=== PATIENT | male | born 1955 ===

== ENCOUNTER 2019-04-09 14:08 | Inpatient (IN) ==
[2019-04-09] MEDS ORDERED: SODIUM CHLORIDE 0.9% 1,000 ML IV STA (15:24)
[2019-04-09] MEDS ORDERED: AZITHROMYCIN 250 MG TABLET PO STA (16:19)
[2019-04-09] MEDS ORDERED: cefTRIAXone 1,000 MG in SODIUM CHLORIDE 0.9% 100 ML IV STA (16:19)
[2019-04-09 16:23] LABS: Albumin 3.4 G/DL (3.4-5.0); Bilirubin,Total 1.2 MG/DL (0.2-1.0); Calcium 8.2 MG/DL (8.5-10.1); Osmolality,Calculated 286.1 MOS/KG (273-304); Total Protein 6.8 G/DL (6.4-8.3)
[2019-04-09] MEDS ORDERED: SODIUM CHLORIDE 0.9% 2,400 ML IV ONE ×2 (17:23→19:02)
[2019-04-09 17:28] LABS: Basophils % 0.2 % (0.0-0.8); Hematocrit 40.1 VOL% (42.0-52.0); Hemoglobin 13.7 GM/DL (14.0-18.0); Immature Granulocytes % 0.3 %; Immature Granulocytes Absolute 0.03 #; Lymphocytes # 0.5 10*3/uL (1.4-4.0); Lymphocytes % 5.2 % (21.2-54.2); Mean Corpuscular HGB Conc 34.2 GM/DL (32-36); Mean Corpuscular Volume 97.1 FL (87-102); Mean Platelet Volume 9.4 FL (9.6-12.0); Monocytes % 7.5 % (1.7-12.7); Neutrophils % 86.8 % (38.7-73.9); Platelet Count 178 T/CUMM (130-400); Red Blood Count 4.13 MC/CUMM (3.8-5.5); Red Cell Distribution Width 14.2 % (9.3-17.3); White Blood Count 9.7 T/CUMM (4-12)
[2019-04-09 17:59] LABS: Apearance,Urine CLEAR (Clear); Blood, Urine Negative (Negative); Glucose,Urine (UA) Negative (Negative); Hyaline Casts,Urine 48 /LPF (0-3); Ketones,Urine Negative (Negative); Mucus,Urine Few /LPF (Occasional); Nitrite,Urine Negative (Negative); Protein,Urine 30 MG/DL; RBC,Urine 3 /HPF (0-4); Squamous Epithelial Cell,Urine Occasional /HPF (0-10); Urine Color Amber (Yellow); Urine Specific Gravity 1.026 (1.001-1.035); WBC,Urine 2 /HPF (0-6)
[2019-04-09 18:04] LABS: Bilirubin,Urine Small mg/dL (Negative)
[2019-04-09 18:30] LABS: Band Neutrophils 28 % (0-10); Lymphocytes 6 % (20-55); Metamyelocytes 8 %; Segmented Neutrophils 53 % (50-85); Total Cells Counted 100
[2019-04-09 18:31] LABS: Platelet Estimate Normal
[2019-04-09] MEDS ORDERED: MAGNESIUM SULF RIDER 2 GM in PREMIX 1 EACH IV ONE (19:13)
[2019-04-09] MEDS ORDERED: MORPHINE 4 MG/1 ML VIAL IV PRN (19:20)
[2019-04-09] MEDS ORDERED: ONDANSETRON 4 MG/2 ML VIAL IV PRN (19:23)
[2019-04-09] MEDS ORDERED: ACETAMINOPHEN 325 MG TABLET PO PRN (19:23)
[2019-04-09] MEDS ORDERED: NICOTINE 21 MG/24 HR PATCH TRANSDERM PRN (19:26)
[2019-04-09] MEDS: MEROPENEM 500 MG in SODIUM CHLORIDE 0.9% 100 ML IV SCH (20:30)
[2019-04-09] MEDS: SODIUM CHLORIDE 0.9% 1,000 ML IV SCH (20:30)
[2019-04-09] MEDS ORDERED: ENOXAPARIN 30 MG/0.3 ML SYRINGE SUBCUT SCH (21:00)
[2019-04-09 21:19] LABS: CKMB % 3.1 %; Troponin I < 0.015 NG/ML (0.00-0.045)
[2019-04-09 21:25] LABS: Free T4 (Free Thyroxine) 0.85 NG/DL (0.76-1.46)
[2019-04-09] MEDS: GABAPENTIN 300 MG CAPSULE PO SCH (21:30)
[2019-04-09] MEDS: buPROPion SR 150 MG TABLET PO SCH (21:30)
[2019-04-09] MEDS ORDERED: VANCOMYCIN INJ 1,250 MG in SODIUM CHLORIDE 0.9% 250 ML IV SCH (22:00)
[2019-04-09] MEDS: propylthiouraciL 50 MG TABLET PO SCH (22:11)
[2019-04-09 23:34] LABS: Apearance,Urine CLEAR (Clear); Bilirubin,Urine Negative (Negative); Blood, Urine Negative (Negative); Glucose,Urine (UA) Negative (Negative); Hyaline Casts,Urine 1 /LPF (0-3); Ketones,Urine Negative (Negative); Mucus,Urine Occasional /LPF (Occasional); Nitrite,Urine Negative (Negative); Protein,Urine Negative; RBC,Urine 1 /HPF (0-4); Urine Color Yellow (Yellow); Urine Specific Gravity 1.009 (1.001-1.035); WBC,Urine <1 /HPF (0-6)
[2019-04-10] MEDS: ALBUTEROL/IPRATROPIUM 3 ML NEB RESP TX SCH ×4 (03:26→19:31)
[2019-04-10] MEDS: SODIUM CHLORIDE 0.9% 1,000 ML IV SCH ×3 (04:15→20:54)
[2019-04-10] MEDS: MEROPENEM 500 MG in SODIUM CHLORIDE 0.9% 100 ML IV SCH (05:00)
[2019-04-10 05:04] LABS: Basophils # 0.1 10*3/uL (0.0-0.2); Basophils % 0.5 % (0.0-0.8); Hematocrit 37.1 VOL% (42.0-52.0); Hemoglobin 12.5 GM/DL (14.0-18.0); Immature Granulocytes % 0.3 %; Immature Granulocytes Absolute 0.03 #; Lymphocytes # 0.8 10*3/uL (1.4-4.0); Lymphocytes % 8.3 % (21.2-54.2); Mean Corpuscular HGB Conc 33.7 GM/DL (32-36); Mean Corpuscular Volume 98.7 FL (87-102); Mean Platelet Volume 9.8 FL (9.6-12.0); Monocytes % 5.8 % (1.7-12.7); Neutrophils % 85.1 % (38.7-73.9); Platelet Count 165 T/CUMM (130-400); Red Blood Count 3.76 MC/CUMM (3.8-5.5); Red Cell Distribution Width 14.4 % (9.3-17.3); White Blood Count 9.2 T/CUMM (4-12)
[2019-04-10 05:23] LABS: Calcium 7.6 MG/DL (8.5-10.1); Osmolality,Calculated 293.7 MOS/KG (273-304)
[2019-04-10 05:25] LABS: CKMB % 3.4 %; Troponin I < 0.015 NG/ML (0.00-0.045)
[2019-04-10 05:35] LABS: Band Neutrophils 18 % (0-10); Hypochromasia Slight; Lymphocytes 4 % (20-55); Platelet Estimate Adequate; Risk Ratio 2.41; Segmented Neutrophils 71 % (50-85); Total Cells Counted 100
[2019-04-10] MEDS: AZITHROMYCIN 250 MG TABLET PO SCH (10:16)
[2019-04-10] MEDS: CLOPIDOGREL 75 MG TABLET PO SCH (10:17)
[2019-04-10] MEDS: ASPIRIN EC 325 MG TABLET PO SCH (10:17)
[2019-04-10] MEDS: ATORVASTATIN 20 MG TABLET PO SCH (10:17)
[2019-04-10] MEDS: buPROPion SR 150 MG TABLET PO SCH ×2 (10:17→20:54)
[2019-04-10] MEDS: GABAPENTIN 300 MG CAPSULE PO SCH ×2 (10:17→20:54)
[2019-04-10] MEDS: PANTOPRAZOLE 40 MG VIAL IV SCH (10:18)
[2019-04-10] MEDS: cefTRIAXone 1,000 MG in SYRINGE 1 EACH IV SCH (10:18)
[2019-04-10] MEDS ORDERED: MEROPENEM 500 MG in SODIUM CHLORIDE 0.9% 100 ML IV SCH (11:00)
[2019-04-10] MEDS: VANCOMYCIN INJ 1,250 MG in SODIUM CHLORIDE 0.9% 250 ML IV SCH (11:30)
[2019-04-10] MEDS: propylthiouraciL 50 MG TABLET PO SCH ×3 (12:28→20:55)
[2019-04-10] MEDS: ENOXAPARIN 40 MG/0.4 ML SYRINGE SUBCUT SCH (20:54)
[2019-04-10] MEDS ORDERED: ZALEPLON 5 MG CAPSULE PO PRN (23:53)
[2019-04-11] MEDS: ALBUTEROL/IPRATROPIUM 3 ML NEB RESP TX SCH ×4 (00:08→20:00)
[2019-04-11] MEDS: VANCOMYCIN INJ 1,250 MG in SODIUM CHLORIDE 0.9% 250 ML IV SCH ×3 (00:28→22:28)
[2019-04-11] MEDS: SODIUM CHLORIDE 0.9% 1,000 ML IV SCH ×3 (02:33→21:06)
[2019-04-11 05:17] LABS: Basophils % 0.3 % (0.0-0.8); Eosinophils % 0.3 % (0.00-10.9); Hematocrit 32.2 VOL% (42.0-52.0); Immature Granulocytes % 1.1 %; Immature Granulocytes Absolute 0.09 #; Lymphocytes # 0.6 10*3/uL (1.4-4.0); Lymphocytes % 7.9 % (21.2-54.2); Mean Corpuscular HGB Conc 34.2 GM/DL (32-36); Mean Corpuscular Volume 98.5 FL (87-102); Mean Platelet Volume 8.7 FL (9.6-12.0); Monocytes % 4.4 % (1.7-12.7); Platelet Count 178 T/CUMM (130-400); Red Blood Count 3.27 MC/CUMM (3.8-5.5); Red Cell Distribution Width 13.9 % (9.3-17.3)
[2019-04-11 05:44] LABS: Calcium 7.9 MG/DL (8.5-10.1)
[2019-04-11 05:59] LABS: Lymphocytes 4 % (20-55); Platelet Estimate Decreased; Segmented Neutrophils 94 % (50-85); Total Cells Counted 100
[2019-04-11 06:00] LABS: Polychromasia Few
[2019-04-11] MEDS: CLOPIDOGREL 75 MG TABLET PO SCH (09:54)
[2019-04-11] MEDS: ATORVASTATIN 20 MG TABLET PO SCH (09:54)
[2019-04-11] MEDS: GABAPENTIN 300 MG CAPSULE PO SCH ×2 (09:54→21:05)
[2019-04-11] MEDS: ASPIRIN EC 325 MG TABLET PO SCH (09:54)
[2019-04-11] MEDS: cefTRIAXone 1,000 MG in SYRINGE 1 EACH IV SCH (09:55)
[2019-04-11] MEDS: buPROPion SR 150 MG TABLET PO SCH ×2 (09:55→21:05)
[2019-04-11] MEDS: PANTOPRAZOLE 40 MG VIAL IV SCH (09:55)
[2019-04-11] MEDS: AZITHROMYCIN 250 MG TABLET PO SCH (09:56)
[2019-04-11] MEDS: propylthiouraciL 50 MG TABLET PO SCH ×3 (10:08→21:07)
[2019-04-11] MEDS: ENOXAPARIN 40 MG/0.4 ML SYRINGE SUBCUT SCH (21:05)
[2019-04-11] MEDS: TEMAZEPAM 15 MG CAPSULE PO PRN (22:28)
[2019-04-12] MEDS: ALBUTEROL/IPRATROPIUM 3 ML NEB RESP TX SCH ×4 (01:12→20:00)
[2019-04-12 05:22] LABS: Basophils % 0.3 % (0.0-0.8); Eosinophils # 0.1 10*3/uL (0.0-0.87); Eosinophils % 0.8 % (0.00-10.9); Hematocrit 32.4 VOL% (42.0-52.0); Hemoglobin 11.1 GM/DL (14.0-18.0); Immature Granulocytes % 0.5 %; Immature Granulocytes Absolute 0.03 #; Lymphocytes # 0.8 10*3/uL (1.4-4.0); Lymphocytes % 13.4 % (21.2-54.2); Mean Corpuscular HGB Conc 34.3 GM/DL (32-36); Mean Platelet Volume 9.8 FL (9.6-12.0); Monocytes % 4.3 % (1.7-12.7); Neutrophils % 80.7 % (38.7-73.9); Platelet Count 161 T/CUMM (130-400); Red Blood Count 3.34 MC/CUMM (3.8-5.5); Red Cell Distribution Width 13.7 % (9.3-17.3); White Blood Count 6.3 T/CUMM (4-12)
[2019-04-12 05:47] LABS: Calcium 7.7 MG/DL (8.5-10.1); Osmolality,Calculated 282.8 MOS/KG (273-304)
[2019-04-12] MEDS ORDERED: POTASSIUM CHLORIDE 20 MEQ TABLET PO ONE (08:44)
[2019-04-12] MEDS: PANTOPRAZOLE 40 MG VIAL IV SCH (09:29)
[2019-04-12] MEDS: ATORVASTATIN 20 MG TABLET PO SCH (09:29)
[2019-04-12] MEDS: GABAPENTIN 300 MG CAPSULE PO SCH ×2 (09:29→21:49)
[2019-04-12] MEDS: ASPIRIN EC 325 MG TABLET PO SCH (09:29)
[2019-04-12] MEDS: CLOPIDOGREL 75 MG TABLET PO SCH (09:29)
[2019-04-12] MEDS: buPROPion SR 150 MG TABLET PO SCH ×2 (09:30→21:48)
[2019-04-12] MEDS: AZITHROMYCIN 250 MG TABLET PO SCH (09:30)
[2019-04-12] MEDS: cefTRIAXone 1,000 MG in SYRINGE 1 EACH IV SCH (09:30)
[2019-04-12] MEDS: propylthiouraciL 50 MG TABLET PO SCH ×3 (09:34→21:49)
[2019-04-12] MEDS: SODIUM CHLORIDE 0.9% 1,000 ML IV SCH (13:18)
[2019-04-12] MEDS: VANCOMYCIN INJ 1,250 MG in SODIUM CHLORIDE 0.9% 250 ML IV SCH ×2 (13:18→22:40)
[2019-04-12] MEDS: TEMAZEPAM 15 MG CAPSULE PO PRN (21:49)
[2019-04-12] MEDS: ENOXAPARIN 40 MG/0.4 ML SYRINGE SUBCUT SCH (21:50)
[2019-04-13] MEDS: ALBUTEROL/IPRATROPIUM 3 ML NEB RESP TX SCH ×4 (00:35→20:38)
[2019-04-13] MEDS: ASPIRIN EC 325 MG TABLET PO SCH (10:07)
[2019-04-13] MEDS: propylthiouraciL 50 MG TABLET PO SCH ×3 (10:07→21:55)
[2019-04-13] MEDS: CLOPIDOGREL 75 MG TABLET PO SCH (10:07)
[2019-04-13] MEDS: buPROPion SR 150 MG TABLET PO SCH ×2 (10:07→21:45)
[2019-04-13] MEDS: ATORVASTATIN 20 MG TABLET PO SCH (10:08)
[2019-04-13] MEDS: cefTRIAXone 1,000 MG in SYRINGE 1 EACH IV SCH (10:08)
[2019-04-13] MEDS: GABAPENTIN 300 MG CAPSULE PO SCH ×2 (10:08→21:50)
[2019-04-13] MEDS: PANTOPRAZOLE 40 MG VIAL IV SCH (10:11)
[2019-04-13] MEDS: AZITHROMYCIN 250 MG TABLET PO SCH (11:58)
[2019-04-13] MEDS: VANCOMYCIN INJ 1,250 MG in SODIUM CHLORIDE 0.9% 250 ML IV SCH (11:58)
[2019-04-13] MEDS ORDERED: FUROSEMIDE 40 MG/4 ML VIAL IV ONE (12:39)
[2019-04-13] MEDS ORDERED: POTASSIUM CHLORIDE 20 MEQ TABLET PO ONE (12:44)
[2019-04-13] MEDS: SULFAMETHOX/TRIMETHOPRIM 400-80 MG TABLET PO SCH ×2 (13:19→21:46)
[2019-04-13] MEDS: AMOXICILLIN 500 MG CAPSULE PO SCH ×2 (14:37→21:45)
[2019-04-13] MEDS: FUROSEMIDE 40 MG/4 ML VIAL IV SCH (15:48)
[2019-04-13] MEDS: ENOXAPARIN 40 MG/0.4 ML SYRINGE SUBCUT SCH (21:51)
[2019-04-14] MEDS: ALBUTEROL/IPRATROPIUM 3 ML NEB RESP TX SCH ×2 (00:58→08:23)
[2019-04-14 05:08] LABS: Basophils % 0.4 % (0.0-0.8); Eosinophils # 0.1 10*3/uL (0.0-0.87); Eosinophils % 2.9 % (0.00-10.9); Hematocrit 33.8 VOL% (42.0-52.0); Hemoglobin 11.8 GM/DL (14.0-18.0); Immature Granulocytes % 1.3 %; Immature Granulocytes Absolute 0.06 #; Lymphocytes # 1.2 10*3/uL (1.4-4.0); Lymphocytes % 25.5 % (21.2-54.2); Mean Corpuscular HGB Conc 34.9 GM/DL (32-36); Mean Corpuscular Volume 94.2 FL (87-102); Mean Platelet Volume 9.6 FL (9.6-12.0); Monocytes % 14.1 % (1.7-12.7); Neutrophils % 55.8 % (38.7-73.9); Platelet Count 198 T/CUMM (130-400); Red Blood Count 3.59 MC/CUMM (3.8-5.5); Red Cell Distribution Width 13.4 % (9.3-17.3); White Blood Count 4.6 T/CUMM (4-12)
[2019-04-14 05:29] LABS: Osmolality,Calculated 281.1 MOS/KG (273-304)
[2019-04-14] MEDS: AMOXICILLIN 500 MG CAPSULE PO SCH (07:10)
[2019-04-14] MEDS: ASPIRIN EC 325 MG TABLET PO SCH (09:48)
[2019-04-14] MEDS: CLOPIDOGREL 75 MG TABLET PO SCH (09:48)
[2019-04-14] MEDS: SULFAMETHOX/TRIMETHOPRIM 400-80 MG TABLET PO SCH (09:48)
[2019-04-14] MEDS: buPROPion SR 150 MG TABLET PO SCH (09:48)
[2019-04-14] MEDS: propylthiouraciL 50 MG TABLET PO SCH (09:48)
[2019-04-14] MEDS: GABAPENTIN 300 MG CAPSULE PO SCH (09:48)
[2019-04-14] MEDS: FUROSEMIDE 40 MG/4 ML VIAL IV SCH (09:48)
[2019-04-14] MEDS: PANTOPRAZOLE 40 MG VIAL IV SCH (09:49)
[2019-04-14] MEDS: ATORVASTATIN 20 MG TABLET PO SCH (09:53)
[2019-04-14] MEDS ORDERED: POTASSIUM CHLORIDE 20 MEQ TABLET PO ONE (09:59)
[2019-04-14 10:47] VITALS: BP 139/83
== END 2019-04-14 14:34 | disposition home or self-care (01) | DRG 871 ==
LOC: N.ED 14:08 → N.EDINP 19:01 → SUATTDRO 19:01 → N.ICU 19:24 → N.5E 04-10 18:01
PROVIDERS: ADMIT Internal Medicine; ATTEND Internal Medicine

== ENCOUNTER 2020-01-06 13:34 | Inpatient (IN) ==
[2020-01-06 14:15] LABS: Basophils % 0.4 % (0.0-0.8); Eosinophils # 0.1 10*3/uL (0.0-0.87); Eosinophils % 1.6 % (0.00-10.9); Hematocrit 42.2 VOL% (42.0-52.0); Hemoglobin 14.3 GM/DL (14.0-18.0); Immature Granulocytes Absolute 0.05 #; Lymphocytes # 0.6 10*3/uL (1.4-4.0); Lymphocytes % 10.7 % (21.2-54.2); Mean Corpuscular HGB Conc 33.9 GM/DL (32-36); Mean Corpuscular Volume 95.5 FL (87-102); Mean Platelet Volume 9.5 FL (9.6-12.0); Monocytes % 6.4 % (1.7-12.7); Neutrophils % 79.9 % (38.7-73.9); Platelet Count 204 T/CUMM (130-400); Red Blood Count 4.42 MC/CUMM (3.8-5.5); Red Cell Distribution Width 14.2 % (9.3-17.3); White Blood Count 5.1 T/CUMM (4-12)
[2020-01-06 14:38] LABS: Bilirubin,Total 0.9 MG/DL (0.2-1.0); Calcium 8.8 MG/DL (8.5-10.1); Osmolality,Calculated 280.3 MOS/KG (273-304); Total Protein 7.7 G/DL (6.4-8.3)
[2020-01-06] MEDS ORDERED: cefTRIAXone 1,000 MG in SODIUM CHLORIDE 0.9% 100 ML IV STA (15:17)
[2020-01-06] MEDS ORDERED: SODIUM CHLORIDE 0.9% 1,000 ML IV STA (15:17)
[2020-01-06 17:08] LABS: Ferritin 55.2 ng/ml (26-388)
[2020-01-06] MEDS ORDERED: NICOTINE 21 MG/24 HR PATCH TRANSDERM PRN (17:09)
[2020-01-06] MEDS ORDERED: ONDANSETRON 4 MG/2 ML VIAL IV PRN (17:09)
[2020-01-06] MEDS ORDERED: ACETAMINOPHEN 325 MG TABLET PO PRN (17:09)
[2020-01-06] MEDS ORDERED: GLUCAGON 1 MG VIAL IM PRN (17:09)
[2020-01-06] MEDS ORDERED: DEXTROSE 50% 25 GM/50 ML VIAL IV PRN (17:09)
[2020-01-06] MEDS ORDERED: DOCUSATE SODIUM 100 MG CAPSULE PO PRN (17:09)
[2020-01-06] MEDS ORDERED: DEXAMETHASONE 4 MG/1 ML VIAL IV SCH (17:30)
[2020-01-06] MEDS: ENOXAPARIN 40 MG/0.4 ML SYRINGE SUBCUT SCH (19:20)
[2020-01-06] MEDS: DEXAMETHASONE 4 MG/1 ML VIAL IV SCH (19:20)
[2020-01-06 19:58] LABS: ABG Base Excess -1.1 MMOL/L (-2.5-2.5); ABG HCO3 21.7 MMOL/L (20-26); ABG Oxygen Saturation 93.7 % (95-100); ABG PCO2 31.1 MM HG (35-48); ABG PH 7.462 (7.35-7.45); ABG PO2 71.7 MM HG (80-95); ABG TCO2 22.7 MMOL/L (23-27)
[2020-01-06] MEDS: ASCORBIC ACID 500 MG TABLET PO SCH (21:50)
[2020-01-07 05:07] LABS: Hematocrit 39.7 VOL% (42.0-52.0); Hemoglobin 13.5 GM/DL (14.0-18.0); Immature Granulocytes % 0.4 %; Immature Granulocytes Absolute 0.01 #; Lymphocytes # 0.3 10*3/uL (1.4-4.0); Lymphocytes % 14.8 % (21.2-54.2); Mean Corpuscular Volume 93.9 FL (87-102); Monocytes % 3.6 % (1.7-12.7); Neutrophils % 81.2 % (38.7-73.9); Platelet Count 212 T/CUMM (130-400); Red Blood Count 4.23 MC/CUMM (3.8-5.5); Red Cell Distribution Width 13.7 % (9.3-17.3); White Blood Count 2.2 T/CUMM (4-12)
[2020-01-07 05:25] LABS: Albumin 2.9 G/DL (3.4-5.0); Bilirubin,Total 0.8 MG/DL (0.2-1.0); Calcium 8.4 MG/DL (8.5-10.1); Osmolality,Calculated 275.5 MOS/KG (273-304); Total Protein 7.3 G/DL (6.4-8.3)
[2020-01-07 05:27] LABS: Free T4 (Free Thyroxine) 1.1 NG/DL (0.76-1.46); Risk Ratio 3.94; Thyroid Stimulating Hormone 0.355 uIU/ml (0.358-3.74); VLDL CHOLESTEROL 14.2 MG/DL
[2020-01-07 07:05] LABS: Sedimentation Rate-Westergren 90 MM/HR (0-20)
[2020-01-07] MEDS ORDERED: AZITHROMYCIN INJ 500 MG in SODIUM CHLORIDE 0.9% 250 ML IV SCH (09:00)
[2020-01-07] MEDS: cefTRIAXone 1,000 MG in SYRINGE 1 EACH IV SCH (09:18)
[2020-01-07] MEDS: CHOLECALCIFEROL 1,000 UNIT TABLET PO SCH (09:19)
[2020-01-07] MEDS: ENOXAPARIN 40 MG/0.4 ML SYRINGE SUBCUT SCH (09:19)
[2020-01-07] MEDS: DEXAMETHASONE 4 MG/1 ML VIAL IV SCH (09:19)
[2020-01-07] MEDS: ZINC SULFATE 220 MG CAPSULE PO SCH (09:20)
[2020-01-07] MEDS: ASCORBIC ACID 500 MG TABLET PO SCH ×2 (09:20→20:46)
[2020-01-07] MEDS: AZITHROMYCIN 250 MG TABLET PO SCH (09:20)
[2020-01-07 10:38] LABS: ABG Base Excess -2.2 MMOL/L (-2.5-2.5); ABG HCO3 20.8 MMOL/L (20-26); ABG Oxygen Saturation 95.6 % (95-100); ABG PCO2 30.8 MM HG (35-48); ABG PH 7.447 (7.35-7.45); ABG PO2 82.3 MM HG (80-95); ABG TCO2 21.7 MMOL/L (23-27)
[2020-01-07] MEDS ORDERED: ALUM/MAG/SIMETH/LIDO VISC 1:1 30 ML BOTTLE PO ONE (15:39)
[2020-01-07] MEDS ORDERED: CALCIUM CARBONATE CHEW 500 MG TABLET PO PRN (15:40)
[2020-01-08 06:12] LABS: Hematocrit 38.5 VOL% (42.0-52.0); Hemoglobin 13.3 GM/DL (14.0-18.0); Immature Granulocytes % 0.4 %; Immature Granulocytes Absolute 0.02 #; Lymphocytes # 0.7 10*3/uL (1.4-4.0); Lymphocytes % 13.5 % (21.2-54.2); Mean Corpuscular HGB Conc 34.5 GM/DL (32-36); Mean Corpuscular Volume 92.1 FL (87-102); Mean Platelet Volume 9.8 FL (9.6-12.0); Monocytes % 9.2 % (1.7-12.7); Neutrophils % 76.9 % (38.7-73.9); Platelet Count 214 T/CUMM (130-400); Red Blood Count 4.18 MC/CUMM (3.8-5.5); Red Cell Distribution Width 13.2 % (9.3-17.3); White Blood Count 5.1 T/CUMM (4-12)
[2020-01-08 07:14] LABS: Albumin 2.7 G/DL (3.4-5.0); Bilirubin,Total 0.8 MG/DL (0.2-1.0); Calcium 8.8 MG/DL (8.5-10.1); Ferritin 81.3 ng/ml (26-388); Osmolality,Calculated 277.4 MOS/KG (273-304); Total Protein 6.9 G/DL (6.4-8.3)
[2020-01-08] MEDS: ZINC SULFATE 220 MG CAPSULE PO SCH (08:07)
[2020-01-08] MEDS: AZITHROMYCIN 250 MG TABLET PO SCH (08:07)
[2020-01-08] MEDS: CHOLECALCIFEROL 1,000 UNIT TABLET PO SCH (08:07)
[2020-01-08] MEDS: ENOXAPARIN 40 MG/0.4 ML SYRINGE SUBCUT SCH (08:08)
[2020-01-08] MEDS: DEXAMETHASONE 4 MG/1 ML VIAL IV SCH (08:08)
[2020-01-08] MEDS: cefTRIAXone 1,000 MG in SYRINGE 1 EACH IV SCH (08:08)
[2020-01-08] MEDS: ASCORBIC ACID 500 MG TABLET PO SCH ×2 (08:08→21:44)
[2020-01-08 08:15] LABS: Sedimentation Rate-Westergren 90 MM/HR (0-20)
[2020-01-08 23:59] LABS: Specimen Source SPUTUM
[2020-01-09] MEDS ORDERED: ZALEPLON 5 MG CAPSULE PO PRN (00:26)
[2020-01-09 05:24] LABS: Basophils % 0.2 % (0.0-0.8); Hematocrit 36.8 VOL% (42.0-52.0); Hemoglobin 12.8 GM/DL (14.0-18.0); Immature Granulocytes % 0.2 %; Immature Granulocytes Absolute 0.01 #; Lymphocytes # 0.8 10*3/uL (1.4-4.0); Lymphocytes % 16.4 % (21.2-54.2); Mean Corpuscular HGB Conc 34.8 GM/DL (32-36); Mean Corpuscular Volume 92.2 FL (87-102); Monocytes % 10.6 % (1.7-12.7); Neutrophils % 72.6 % (38.7-73.9); Platelet Count 232 T/CUMM (130-400); Red Blood Count 3.99 MC/CUMM (3.8-5.5); Red Cell Distribution Width 13.1 % (9.3-17.3)
[2020-01-09 05:45] LABS: Albumin 2.8 G/DL (3.4-5.0); Bilirubin,Total 0.6 MG/DL (0.2-1.0); Calcium 8.5 MG/DL (8.5-10.1); Osmolality,Calculated 274.7 MOS/KG (273-304); Total Protein 6.7 G/DL (6.4-8.3)
[2020-01-09 07:55] LABS: Sedimentation Rate-Westergren 70 MM/HR (0-20)
[2020-01-09 08:04] VITALS: BP 157/85
[2020-01-09] MEDS: cefTRIAXone 1,000 MG in SYRINGE 1 EACH IV SCH (08:23)
[2020-01-09] MEDS: DEXAMETHASONE 4 MG/1 ML VIAL IV SCH (08:23)
[2020-01-09] MEDS: ENOXAPARIN 40 MG/0.4 ML SYRINGE SUBCUT SCH (08:24)
[2020-01-09] MEDS: ASCORBIC ACID 500 MG TABLET PO SCH (08:24)
[2020-01-09] MEDS: CHOLECALCIFEROL 1,000 UNIT TABLET PO SCH (08:24)
[2020-01-09] MEDS: AZITHROMYCIN 250 MG TABLET PO SCH (08:24)
[2020-01-09] MEDS: ZINC SULFATE 220 MG CAPSULE PO SCH (08:25)
== END 2020-01-09 09:38 | disposition home health service (06) | DRG 177 ==
LOC: N.ED 13:34 → N.EDINP 17:09 → N.2E 01-07 07:45
PROVIDERS: ADMIT Hospitalist; ATTEND Hospitalist